=== PATIENT | male | born 1970 | race Caucasian/White ===

== ENCOUNTER 2018-10-22 15:21 | Emergency (ER) | payer OTHER ==
[~2018-10-22] VITALS: Ht 182.9 cm; Wt 80.7 kg
--- NOTE | 2018-10-22 15:57 | NUR ---
NAOMIE MILLAN AT BEDSIDE FOR MSE.
[2018-10-22] MEDS ORDERED: ACETAMINOPHEN ES 500 MG TABLET ONE (16:09)
[2018-10-22 16:15] LABS: *BILIRUBIN,URIN NEGATIVE (NEGATIVE); *BLOOD, URINE NEGATIVE (NEGATIVE); *CLARITY,URINE CLEAR (CLEAR); *COLOR,URINE YELLOW (YELLOW); *KETONES,URINE NEGATIVE (NEGATIVE); *UROBILINOGEN,URINE 0.2 E.U./dl (NORMAL); NITRITE, URINE NEGATIVE (NEGATIVE); UGLUCOSE NEGATIVE (NEGATIVE)
[2018-10-22] MEDS ORDERED: ACETAMINOPHEN ES 500 MG TABLET PO ONE (16:15)
[2018-10-22 16:22] LABS: LEUKOCYTE ESTERASE ,URINE 1+ (NEGATIVE)
[2018-10-22 16:23] LABS: MUCUS,URINE FEW /LPF (0-FEW); RBC,URINE 0-3 /HPF (0-3)
--- NOTE | 2018-10-22 16:40 | NUR ---
US TECH AT BEDSIDE.
--- NOTE | 2018-10-22 16:55 | NUR ---
NAOMIE MILLAN AT BEDSIDE FOR PT UPDATE.
--- NOTE | 2018-10-22 17:05 | NUR ---
Patient discharged to home in stable conditon. Written and verbal after care instructions given. Patient verbalizes understanding of instructions.
[2018-10-25 10:06] LABS: *GC NAA Negative (Negative); *TRIC.VAG. NAA Negative (Negative)
== END 2018-10-22 17:06 | disposition home or self-care (01) ==
LOC: ER 15:23
DX: N39.0 Urinary tract infection, site not specified (principal); M54.9 Dorsalgia, unspecified
CPT/HCPCS: 76770; 87086; 87491; A4663; A9150